=== PATIENT | female | born 1995 | race Caucasian/White ===

== ENCOUNTER → 2019-12-14 00:15 | Observation (INO) | END | disposition home or self-care (01) | LOC: 1NENULAB | PROVIDERS: ADMIT Obstetrics & Gynecology; ATTEND Obstetrics & Gynecology ==

== ENCOUNTER 2020-03-25 19:43 | Observation (INO) ==
[2020-03-25 20:20] LABS: Bilirubin,Urine Negative (Negative); Blood,Urine Negative (Negative); Clarity,Urine Clear (Clear); Color,Urine Yellow (Yellow); Glucose,Urine (UA) Normal (Normal); Ketones,Urine Negative (Negative); Leukocyte Esterase,Urine Negative (Negative); Nitrite,Urine Negative (Negative); Protein,Urine Trace mg/dL (Neg-Trace); Specific Gravity,Urine 1.028 (1.010-1.025); Urobilinogen,Urine Normal (Normal)
== END 2020-03-25 21:50 | disposition home or self-care (01) ==
LOC: 1NENULAB
PROVIDERS: ADMIT Obstetrics & Gynecology; ATTEND Obstetrics & Gynecology

== ENCOUNTER 2020-04-08 22:00 | Inpatient (IN) ==
[2020-04-08] MEDS ORDERED: Ondansetron 4 MG/2 ML VIAL IVP PRN (23:08)
[2020-04-08] MEDS ORDERED: Naloxone 0.4 MG/ML INJ IVP PRN (23:08)
[2020-04-08] MEDS ORDERED: Metoclopramide 10 MG/2 ML VIAL IVP PRN (23:08)
[2020-04-08] MEDS ORDERED: miSOPROStoL 25 MCG TABLET PO PRN (23:08)
[2020-04-08] MEDS ORDERED: Famotidine 20 MG/2 ML VIAL IVP PRN (23:08)
[2020-04-09] MEDS: Ringers Solution, Lactated 1,000 ML IVC SCH ×3 (01:18→12:25)
[2020-04-09 01:47] LABS: Basophils % 0.2 %; Hematocrit 34.1 % (35.3-44.9); Hemoglobin 10.9 g/dL (11.5-15.4); Immature Granulocytes % 0.5 % (0-4); Lymphocytes % 16.2 %; Mean Corpuscular Hemoglobin 24.7 pg (28.0-33.3); Mean Corpuscular Volume 77.3 fL (83.0-100.0); Mean Platelet Volume 11.6 fL (9.4-12.4); Monocytes # 0.6 K/mcL (0.0-1.3); Monocytes % 4.8 %; Neutrophils # 9.9 K/mcL (1.6-8.9); Platelet Count 258 K/mcL (140-400); Red Blood Count 4.41 M/mcL (3.82-4.97); Red Cell Distribution Width 15.4 % (11.5-14.5); Segmented Neutrophils % 78.3 %; White Blood Count 12.6 K/mcL (4.3-11.1)
[2020-04-09 02:01] LABS: Amphetamine Screen,Urine Negative ng/mL (Cutoff=1000); Barbiturate Screen,Urine Negative ng/mL (Cutoff=200); Benzodiazepines Screen,Urine Negative ng/mL (Cutoff=200); Cannabinoid Screen,Urine Negative ng/mL (Cutoff = 50); Cocaine Screen,Urine Negative ng/mL (Cutoff= 300); Opiate Screen,Urine Negative ng/mL (Cutoff=300); Phencyclidine Screen,Urine Negative ng/mL (Cutoff=25)
[2020-04-09] MEDS ORDERED: Oxytocin 20 units/ LR 1000 mL 20 UNIT/1,000 ML BAG IVC ONE (05:45)
[2020-04-09] MEDS ORDERED: Oxytocin 20 units/ LR 1000 mL 20 UNIT/1,000 ML BAG IVC SCH ×2 (06:00→16:47)
[2020-04-09] MEDS ORDERED: EPHEDrine 50 MG/ML VIAL IVP PRN (06:50)
[2020-04-09] MEDS ORDERED: Epidural Premix (fent/bupiv) 110 ML EP SCH (07:00)
[2020-04-09] MEDS ORDERED: Ropivacaine/PF 0.2% 20 ML VIAL EP ONE (09:37)
[2020-04-09] MEDS ORDERED: *HR* FentaNYL (PF) 100 MCG/2 ML VIAL EP ONE (09:37)
[2020-04-09] MEDS ORDERED: Ropivacaine/PF 0.2% 20 ML VIAL ONE (09:41)
[2020-04-09] MEDS ORDERED: *HR* FentaNYL (PF) 100 MCG/2 ML VIAL ONE (09:41)
[2020-04-09] MEDS ORDERED: Ibuprofen 600 MG TABLET PO PRN (16:47)
[2020-04-09] MEDS ORDERED: Sennosides 8.6 MG TABLET PO PRN (16:47)
[2020-04-09] MEDS ORDERED: Acetaminophen 325 MG TABLET PO PRN (16:47)
[2020-04-09] MEDS ORDERED: *HR* Metformin 500 MG TABLET PO SCH (17:00)
[2020-04-09] MEDS: *HR* Buprenorphine HCl 2 MG SUBLINGUAL TABLET SL SCH ×2 (17:42→22:51)
[2020-04-10] MEDS: *HR* Buprenorphine HCl 2 MG SUBLINGUAL TABLET SL SCH ×4 (02:46→10:30)
[2020-04-10 07:42] LABS: Basophils % 0.2 %; Eosinophils % 0.1 %; Hematocrit 29.8 % (35.3-44.9); Hemoglobin 9.6 g/dL (11.5-15.4); Immature Granulocytes % 0.7 % (0-4); Lymphocytes # 2.6 K/mcL (0.6-4.6); Lymphocytes % 20.8 %; Mean Corpuscular HGB Conc 32.2 g/dL (31.6-35.5); Mean Corpuscular Hemoglobin 24.6 pg (28.0-33.3); Mean Corpuscular Volume 76.2 fL (83.0-100.0); Mean Platelet Volume 11.6 fL (9.4-12.4); Monocytes # 0.7 K/mcL (0.0-1.3); Monocytes % 5.6 %; Neutrophils # 8.9 K/mcL (1.6-8.9); Platelet Count 217 K/mcL (140-400); Red Blood Count 3.91 M/mcL (3.82-4.97); Red Cell Distribution Width 15.5 % (11.5-14.5); Segmented Neutrophils % 72.6 %; White Blood Count 12.3 K/mcL (4.3-11.1)
[2020-04-10] MEDS ORDERED: *HR* Metformin 500 MG TABLET PO SCH (08:00)
[2020-04-10 08:04] VITALS: BP 117/76
[2020-04-10] MEDS ORDERED: Etonogestrel 68 MG IMPLANT IL ONE (08:09)
[2020-04-10] MEDS ORDERED: Lidocaine/EPI 1:100k 1% 30 ML VIAL INFILT ONE (08:09)
[2020-04-10] MEDS ORDERED: Prenatal Vit/FA 1 EACH TABLET PO SCH (09:00)
== END 2020-04-10 11:05 | disposition home or self-care (01) | DRG 807 ==
LOC: 1NENULAB 22:59 → 1NENUOBS 04-09 16:45
PROVIDERS: ADMIT Registered Nurse; ATTEND Registered Nurse